=== PATIENT | male | born 1985 | race Caucasian/White ===

== ENCOUNTER 2022-03-20 10:14 | Emergency (ER) | payer BC ==
[2022-03-20] MEDS ORDERED: Acetaminophen 500 MG TAB ONE (10:35)
[2022-03-20] MEDS ORDERED: Ketorolac Tromethamine 30 MG/ML VIAL ONE (10:35)
[2022-03-20 10:37] LABS: #Eosinphils 0.1 10x3/uL (0.0-0.5); #Monocytes 0.7 10x3/uL (0.0-1.1); #Neutrophils 6.8 10x3/uL (1.5-8.4); %Basophils 0.4 % (0.0-2.0); %Eosinophils 0.7 % (0.0-6.0); %Lymphocytes 17.6 % (18.0-47.0); %Monocytes 7.3 % (0.0-10.0); %Neutrophils 73.7 % (40.0-75.0); Hemoglobin 17.6 g/dL (13.5-17.5); Mean Corpuscular HGB CONC 36.4 g/dL (32.0-36.0); Mean Corpuscular Volume 90.4 fl (81.2-95.1); Mean Platelet Volume 9.6 fl (7.4-10.4); Platelet Count 162 10x3/uL (150-450); RBC Distribution Width 13.2 % (11.5-14.5); Red Blood Cell (RBC) Count 5.34 10x6/uL (4.32-5.72); White Blood Cell (WBC) Count 9.2 10x3/uL (3.5-10.5)
[2022-03-20 11:00] LABS: ALT (SGPT) 90 U/L (8-55); AST (SGOT) 46 U/L (5-34); Acetaminophen Less than 10.0 mcg/mL (10.0-30.0); Albumin 4.7 g/dL (3.5-5.0); Alcohol Less than 10 mg/dL (Less than 10); Alkaline Phosphatase 70 U/L (40-110); Anion Gap 20 mmol/L (10-20); BUN (Urea Nitrogen) 17 mg/dL (8.9-20.6); Bilirubin, Total 0.9 mg/dL (0.2-1.2); Calc. Creatinine Clearance 0 mL/min (70-130); Calcium 9.7 mg/dL (7.8-10.44); Carbon Dioxide 24 mmol/L (22-29); Chloride 97 mmol/L (98-107); Globulin 2.5 g/dL (2.4-3.5); Glucose 133 mg/dL (70-105); Potassium 3.7 mmol/L (3.5-5.1); Protein, Total 7.2 g/dL (6.0-8.3); Salicylate Less than 8.0 mg/dL (15.0-30.0); Sodium 137 mmol/L (136-145)
== END 2022-03-20 12:50 | disposition home or self-care (01) ==
LOC: CSHERS 10:14
DX: R56.9 Unspecified convulsions (principal); F17.210 Nicotine dependence, cigarettes, uncomplicated
CPT/HCPCS: 70450; 80053; 80307; 85025; 93005; 96374; J1885